=== PATIENT | female | born 1965 | race Caucasian/White ===

== ENCOUNTER → 2017-03-29 | Outpatient (CLI) | payer BC ==
[~2017-03-29] MED LIST: ACET-789 PO; IBP600T1 PO; METO25TA PO; MULT-974 PO
--- NOTE | 2017-03-31 11:38 | Diagnostic Imaging Report ---
EXAMINATION: Bilateral screening mammogram with a Computer Aided Detection (CAD) system. INDICATION: Screening. PERSONAL HISTORY: No current complaints stated on the questionnaire. COMPARISON: 02/19/2015. FINDINGS: The breasts are composed of heterogeneously dense parenchyma which may decrease mammographic sensitivity. Allowing for technique and positional differences, no suspicious change is seen. IMPRESSION: No significant change. ACR BI-RADS Category 2: Benign findings. Result letter will be mailed to the patient. Note: At least 10% of breast cancer is not imaged by mammography. Dictated by: Dictated on workstation # [id number]
== END ==
LOC: RAD 10:16
PROVIDERS: ATTEND Obstetrics & Gynecology
DX: Z12.31 Encounter for screening mammogram for malignant neoplasm of breast (principal)
CPT/HCPCS: 77067

== ENCOUNTER → 2018-09-19 | Outpatient (CLI) | payer BC ==
--- NOTE | 2018-09-19 21:57 | Diagnostic Imaging Report ---
INDICATION: Routine screening. Comparison is made with prior mammograms from 03/29/2017 and 02/19/2015. 2-D and 3-D bilateral screening mammography was performed with computer-aided detection (CAD) system. FINDINGS: Scattered fibroglandular densities are identified bilaterally. The parenchymal pattern is stable. No mass or malignant-appearing microcalcifications are seen. The axillae are unremarkable. IMPRESSION: No mammographic features suspicious for malignancy are identified. ACR BI-RADS Category 1: Negative. Result letter will be mailed to the patient. Note: At least 10% of breast cancer is not imaged by mammography. Dictated by: Dictated on workstation # [id number]
== END ==
LOC: RAD 10:00
PROVIDERS: ATTEND Obstetrics & Gynecology
DX: Z12.31 Encounter for screening mammogram for malignant neoplasm of breast (principal)
CPT/HCPCS: 77067

== ENCOUNTER → 2019-09-21 | Outpatient (CLI) | payer BC ==
--- NOTE | 2019-09-21 13:15 | Diagnostic Imaging Report ---
INDICATION: Routine screening. COMPARISON is made with prior mammograms from 09/19/2018 and 03/29/2017. 2-D and 3-D bilateral screening mammography was performed with CAD. Scattered fibroglandular densities are identified bilaterally. The parenchymal pattern is stable. No mass or malignant appearing microcalcifications are seen. Axillae are unremarkable. IMPRESSION: BI-RADS Category 1 No mammographic features suspicious for malignancy are identified. Dictated by: Dictated on workstation # [id number]
== END ==
LOC: RAD 11:27
PROVIDERS: ATTEND Nurse Practitioner Women's Health
DX: Z12.31 Encounter for screening mammogram for malignant neoplasm of breast (principal)
CPT/HCPCS: 77067

== ENCOUNTER → 2019-11-17 | Outpatient (CLI) | payer BC ==
--- NOTE | 2019-11-17 09:02 | Diagnostic Imaging Report ---
PROCEDURE: US Hepatic (Liver). TECHNIQUE: Multiple real-time grayscale images were obtained over the right upper quadrant in various projections. INDICATION: Abnormal CT exam. COMPARISON: There are no prior ultrasound or CT examinations available for comparison. Reportedly, the patient has had a CT at outside facility which suggested the presence of a hemangioma within the liver. Neither that exam nor the report of that study is available at this time. FINDINGS: On this study, the liver does not appear to be enlarged. There is no focal area of increased or decreased echogenicity to suggest a mass or hemangioma. The biliary tree is not abnormally dilated. Spectral and color-flow imaging of the portal vein shows that the vein is patent and that there is normal directional flow within the vein. There is no evidence for cholelithiasis or acute cholecystitis and the common bile duct is not dilated. The right kidney is unremarkable. The pancreas, the aorta, and inferior vena cava are partially obscured by bowel gas. IMPRESSION: 1. There is no focal mass within the liver to suggest a hemangioma. If the previous exam is available, it would be helpful for comparison. 2. No other hepatic abnormality is identified. 3. There is no acute abnormality of the right upper quadrant. Dictated by: Dictated on workstation # [id number]
== END ==
LOC: RT 07:04
PROVIDERS: ATTEND Family Medicine
DX: D18.09 Hemangioma of other sites (principal); R06.00 Dyspnea, unspecified
CPT/HCPCS: 76705; 94060; 94726; 94729

== ENCOUNTER → 2020-02-20 | Outpatient (CLI) | payer BC ==
[2020-02-20 10:19] LABS: ALANINE AMINOTRANSFERASE 19 U/L (0-55); ALBUMIN 4.4 GM/DL (3.2-4.5); ALKALINE PHOSPHATASE 78 U/L (40-136); BILIRUBIN,TOTAL 0.5 MG/DL (0.1-1.0); BUN/CREATININE RATIO 11; CALCIUM 9.8 MG/DL (8.5-10.1); CARBON DIOXIDE 27 MMOL/L (21-32); CHLORIDE 107 MMOL/L (98-107); CHOLESTEROL 174 MG/DL (< 200); CREATININE SERUM 0.83 MG/DL (0.60-1.30); GFR ESTIMATED > 60; GLUCOSE 91 MG/DL (70-105); HDL CHOLESTEROL 62 MG/DL (40-60); POTASSIUM 4.7 MMOL/L (3.6-5.0); SODIUM 143 MMOL/L (135-145); TOTAL PROTEIN 7.2 GM/DL (6.4-8.2); TRIGLYCERIDES 120 MG/DL (<150); VLDL CHOLESTEROL 24 MG/DL (5-40)
== END ==
LOC: LAB 09:51
PROVIDERS: ATTEND Family Medicine
DX: E78.5 Hyperlipidemia, unspecified (principal)
CPT/HCPCS: 36415; 80053; 80061

== ENCOUNTER → 2021-08-27 | Outpatient (CLI) | payer BC ==
--- NOTE | 2021-08-27 15:40 | Diagnostic Imaging Report ---
EXAMINATION: US Thyroid. TECHNIQUE: Multiple real-time grayscale images were obtained of the thyroid in various projections. HISTORY: Thyroid nodule follow-up. COMPARISON: 02/19/2015. FINDINGS: The right lobe of the thyroid measures 6.6 x 2.0 x 2.4 cm. The right lobe is enlarged, heterogeneous, and hypervascular. The largest nodule is a solid, hypoechoic, wider than tall nodule with smooth margins measuring 1.5 cm. Additional smaller nodules are present. The left lobe of the thyroid measures 5.6 x 2.1 x 2.7 cm. The left lobe is enlarged, heterogeneous, and hypervascular. The largest nodule is a mixed solid and cystic, isoechoic, wider than tall nodule with smooth margins measuring 1.3 cm. Additional smaller nodules are present. The isthmus is enlarged and measures 0.8 cm. No suspicious adenopathy within the visualized neck. IMPRESSION: 1. Bilateral thyroid nodules measuring up to 1.5 cm on the right. This largest 1.5 cm nodule does meet criteria for fine-needle aspiration. TI-RADS 4. 2. Enlarged, heterogeneous, hypervascular appearance of the thyroid gland which can be seen with thyroiditis. TI-RADS 1: Benign No FNA or follow-up required TI-RADS 2: Not Suspicious No FNA or follow-up required TI-RADS 3: Mildly Suspicious FNA if ? 2.5 cm Follow if ? 1.5 cm (At 1, 3 and 5 years from initial scan) TI-RADS 4: Moderately Suspicious FNA if ? 1.5 cm Follow if ? 1 cm (At 1, 2, 3 and 5 years from initial scan) TI-RADS 5: Highly Suspicious FNA if ? 1 cm Follow if ? 0.5 cm (Annually for 5 years from initial scan) Dictated by: Dictated on workstation # [id number]
== END ==
LOC: RAD 12:00
PROVIDERS: ATTEND Nurse Practitioner Family
DX: E04.2 Nontoxic multinodular goiter (principal)
CPT/HCPCS: 76536

== ENCOUNTER → 2021-09-30 | Outpatient (CLI) | payer BC ==
--- NOTE | 2021-09-30 12:28 | Diagnostic Imaging Report ---
Indication: Routine screening. Comparison is made with prior mammogram 09/21/2019 09/19/2018. 2-D and 3-D bilateral screening mammography was performed with CAD. Scattered fibroglandular densities are identified bilaterally. The parenchymal pattern is stable. No mass or malignant-appearing microcalcifications are seen. There are benign calcifications present. Axillae are unremarkable. IMPRESSION: BI-RADS Category 2 No mammographic features suspicious for malignancy are identified. ACR BI-RADS Category 2: Benign findings. Result letter will be mailed to the patient. Note: At least 10% of breast cancer is not imaged by mammography. Dictated by: Dictated on workstation # [id number]
== END ==
LOC: RAD 10:45
PROVIDERS: ATTEND Obstetrics & Gynecology
DX: Z12.31 Encounter for screening mammogram for malignant neoplasm of breast (principal)
CPT/HCPCS: 77063; 77067

== ENCOUNTER → 2022-08-04 | Outpatient (CLI) | payer BC ==
--- NOTE | 2022-08-04 18:13 | Diagnostic Imaging Report ---
PROCEDURE: US Thyroid. TECHNIQUE: Multiple real-time grayscale images were obtained of the thyroid in various projections. INDICATION: Multinodular goiter. COMPARISON: 08/27/2021 and 02/19/2015. FINDINGS: The right lobe of the thyroid gland is enlarged measuring 5.3 x 2.6 x 2.1 cm. It demonstrates diffusely heterogeneous echotexture with multiple nodules identified throughout the left thyroid lobe. An ovoid hypoechoic predominantly solid nodule with circumscribed margins which is wider than tall is noted within the mid inferior pole of the right thyroid lobe measuring 1.6 x 1.4 x 0.8 cm. A few punctate echogenic foci are present within this nodule. This has not significantly changed in size since the prior examination, though has increased in size since 2015. Additional smaller nodules are identified within the right thyroid lobe, predominantly colloid cysts. The left lobe of the thyroid gland measures 5.3 x 2.5 x 2.1 cm, which is mildly enlarged. The left thyroid lobe demonstrates diffuse heterogeneous activity with multiple thyroid nodules throughout. A complex part-cystic and part-solid round 1.2 x 1.1 x 0.9 cm nodule with circumscribed and indistinct margins is again identified within the inferior pole of the left thyroid lobe. This has not significantly changed since the prior examination. No definite new left thyroid nodules. The isthmus is mildly thickened. IMPRESSION: Bilateral thyroid nodules as described above, including a 1.6 cm TI-RADS 4 nodule within the mid inferior pole of the right thyroid lobe. Recommend fine-needle aspiration of this thyroid nodule if this has not previously been performed. Additional bilateral thyroid nodules as described above without new thyroid nodule. This includes a 1.2 cm TI-RADS 3 nodule within the inferior pole of the left thyroid lobe for which a follow-up ultrasound is recommended in one year. Mildly enlarged and heterogeneous thyroid gland. Dictated by: Dictated on workstation # [id number]
== END ==
LOC: RAD 11:22
PROVIDERS: ATTEND Nurse Practitioner Family
DX: E04.2 Nontoxic multinodular goiter (principal)
CPT/HCPCS: 76536

== ENCOUNTER → 2022-12-28 | Outpatient (CLI) | payer BC ==
--- NOTE | 2022-12-28 13:53 | Diagnostic Imaging Report ---
INDICATION: Routine screening. Comparison is made with prior mammogram of 09/30/2021 and 09/21/2019. 2-D and 3-D bilateral screening mammography was performed with CAD. Scattered fibroglandular densities are identified bilaterally. The parenchymal pattern is stable. No mass or malignant-appearing microcalcifications are seen. There are benign calcifications. Axillae are unremarkable. IMPRESSION: No mammographic features suspicious for malignancy are identified. ACR BI-RADS Category 2: Benign findings. Result letter will be mailed to the patient. Note: At least 10% of breast cancer is not imaged by mammography. BI-RADS Category 2 Dictated by: Dictated on workstation # [id number]
== END ==
LOC: RAD 10:33
PROVIDERS: ATTEND Nurse Practitioner Women's Health
DX: Z12.31 Encounter for screening mammogram for malignant neoplasm of breast (principal)
CPT/HCPCS: 77063; 77067